=== PATIENT | female | born 1995 | race Caucasian/White ===

== ENCOUNTER 2017-10-29 14:01 | Emergency (ER) | payer OTHER ==
[~2017-10-29] VITALS: Ht 162.6 cm; Wt 51.3 kg
[~2017-10-29 14:01] MED LIST: ALBU90OI INH; VENL25 PO; VENL37.5 PO; VENL75ER PO; Zithromax250 MG PO
[2017-10-29] MEDS ORDERED: Amoxicillin500 MG PO (15:57)
== END 2017-10-31 16:03 | disposition home or self-care (01) ==
LOC: ER 14:01
DX: K04.7 Periapical abscess without sinus (principal); Z88.2 Allergy status to sulfonamides
CPT/HCPCS: 99282

== ENCOUNTER → 2017-12-14 | Outpatient (CLI) | payer OTHER ==
[~2017-12-14] MED LIST changes: +Amoxicillin500 MG PO
[2017-12-15 09:48] LABS: Candida species (DNA Probe) Negative (NEGATIVE); G. vaginalis (DNA Probe) Positive (NEGATIVE); T. vaginalis (DNA Probe) Negative (NEGATIVE)
[2017-12-17 03:11] LABS: CHLAMYDIA TRACHOMATIS, NAA Negative (Negative); NEISSERIA GONORRHOEAE, NAA Negative (Negative)
== END | disposition home or self-care (01) ==
LOC: LAB SHORT 13:49 → LAB EV 13:49
PROVIDERS: Physician Assistant
DX: Z20.9 Contact with and (suspected) exposure to unspecified communicable disease (principal)
CPT/HCPCS: 87480; 87510; 87660